=== PATIENT | male | born 1980 | race African-American/Black ===

== ENCOUNTER 2022-05-03 01:00 | Emergency (ER) | payer SELFPAY ==
[~2022-05-03] VITALS: Ht 185.4 cm; Wt 114.0 kg
[2022-05-03] MEDS ORDERED: TETANUS, DIPHTHERIA, PERTUSSIS VAC/PF 0.5ML (>10YR OLD) IM ONE (01:45)
[2022-05-03] MEDS ORDERED: ONDANSETRON HCL 4MG/2ML INJ IV ONE (01:45)
[2022-05-03] MEDS ORDERED: MORPHINE SULFATE 4 MG/ML CPJ (NOT FOR IM USE) IV ONE (01:45)
[2022-05-03] MEDS ORDERED: CEFAZOLIN 1000MG PREMIX 50 ML IV ONE (01:45)
[2022-05-03 02:00] VITALS: BP 143/123
[2022-05-03] MEDS ORDERED: HYDROMORPHONE HCL/PF 2MG/ML CPJ IV ONE ×2 (03:15→04:45)
[2022-05-03] MEDS ORDERED: BACITRACIN ZINC OINT UDPKT TOP ONE (03:45)
[2022-05-03] MEDS ORDERED: HYDR-4009 MT (04:48)
[2022-05-03] MEDS ORDERED: CEPH500T MT (04:48)
== END 2022-05-03 05:53 | disposition home or self-care (01) ==
LOC: ER 01:00
DX: S81.832A Puncture wound without foreign body, left lower leg, initial encounter (principal); S81.831A Puncture wound without foreign body, right lower leg, initial encounter; W34.09XA Accidental discharge from other specified firearms, initial encounter; Y93.89 Activity, other specified; Y92.89 Other specified places as the place of occurrence of the external cause; Y99.8 Other external cause status; Z88.0 Allergy status to penicillin
CPT/HCPCS: 73590; 73600; 73620; 90471; 90715; 96365; 96375; 99291; A4217; J0690; J1170; J2270; J2405; Z7610